=== PATIENT | male | born 1950 | race Asian ===

== ENCOUNTER 2017-06-04 23:55 | Emergency (ER) | payer MEDICARE ==
[~2017-06-04] VITALS: Ht 167.6 cm; Wt 80.0 kg
[2017-06-05 02:12] VITALS: BP 128/66
[2017-06-05] MEDS ORDERED: TETANUS, DIPHTHERIA, PERTUSSIS VAC/PF 0.5ML (>7YR OLD) IM ONE (02:15)
== END 2017-06-05 03:30 | disposition home or self-care (01) ==
LOC: ER 06-05 02:50
DX: L03.113 Cellulitis of right upper limb (principal); Z23 Encounter for immunization
CPT/HCPCS: 90471; 90715; 99283